=== PATIENT | male | born 1975 | race Native Hawaiian/Other Pacific Islander ===

== ENCOUNTER 2019-01-21 09:27 | Outpatient (CLI) | payer BC | END 2019-01-21 22:45 | disposition home or self-care (01) | LOC: RAD 09:27 | DX: M25.551 Pain in right hip (principal) ==

== ENCOUNTER 2019-03-19 07:50 | Emergency (ER) | payer BC ==
[~2019-03-19] VITALS: Ht 182.9 cm; Wt 104.3 kg
[2019-03-19 07:53] VITALS: TEMP 98.1
[2019-03-19 08:50] VITALS: BP 130/74
== END 2019-03-19 08:50 | disposition home or self-care (01) ==
LOC: ED 07:50
DX: L03.113 Cellulitis of right upper limb (principal); S60.561A Insect bite (nonvenomous) of right hand, initial encounter; W57.XXXA Bitten or stung by nonvenomous insect and other nonvenomous arthropods, initial encounter
CPT/HCPCS: 99282; 99283